=== PATIENT | male | born 1930 | race Caucasian/White ===

== ENCOUNTER 2017-01-18 08:40 | Inpatient (IN) | payer SELFPAY ==
[~2017-01-18] VITALS: Ht 167.6 cm; Wt 54.0 kg
[2017-01-18] MEDS ORDERED: PROPOFOL 1000 MG/ISO-OSM 100 ML IV PRN (08:58)
[2017-01-18] MEDS ORDERED: NOREPINEPHRINE 4 MG/D5%-WATER 250 ML IV PRN ×2 (08:58→16:46)
[2017-01-18] MEDS ORDERED: IPRATROPIUM BROMIDE 0.5 MG/2.5 ML NEB SOLUTION NEB ONE (09:00)
[2017-01-18] MEDS ORDERED: SODIUM CHLORIDE 0.9% 1,000 ML IV ONE ×2 (09:00)
[2017-01-18] MEDS ORDERED: ALBUTEROL SULFATE 5 MG/ML 20 ML NEB SOLN [BULK] NEB ONE (09:00)
[2017-01-18] MEDS ORDERED: ACETAMINOPHEN 325 MG TABLET PO PRN (09:15)
[2017-01-18] MEDS ORDERED: PANTOPRAZOLE SODIUM 40 MG/VIAL IVP SCH (09:15)
[2017-01-18] MEDS ORDERED: BISACODYL 10 MG RECTAL RECTAL SUPPOSITORY PR PRN (09:15)
[2017-01-18 09:28] LABS: APPEARANCE,URINE CLOUDY (CLEAR); GLUCOSE, URINE (UA) NEGATIVE (NEGATIVE); KETONES,URINE 15 mg/dL (NEGATIVE); LEUKOCYTE ESTERASE ,URINE SMALL (NEGATIVE); OCCULT BLOOD,URINE NEGATIVE (NEGATIVE); PROTEIN,URINE POS 1+ (NEGATIVE)
[2017-01-18 09:29] LABS: ADD UA MICROSCOPIC YES
[2017-01-18 09:34] LABS: TRANSITIONAL EPI CELLS,URINE Few /LPF (None Seen)
[2017-01-18 09:35] LABS: SQUAMOUS EPITHELIAL CELL,UR Rare /LPF (None Seen)
[2017-01-18 09:50] LABS: ABG A-A DIFF O2 177.2 mmHg (10-20.0); ABG BASE EXCESS -24.2 mmol/L (-2.0-3.0); ABG PCO2 32 mmHg (35-45)
[2017-01-18 09:51] LABS: ABG HCO3 8.5 mmol/L (22.0-26.0); ABG PH 6.987 (7.35-7.450); ALLEN TEST, BLOOD GAS Positive
[2017-01-18] MEDS ORDERED: 0.9% SODIUM CHLORIDE 5 ML NEB SOLUTION NEB ONE (09:58)
[2017-01-18] MEDS ORDERED: PIPERACILLIN SODIUM/TAZOBACTAM 3.375 GM/VIAL TP ONE (10:00)
[2017-01-18] MEDS ORDERED: VANCOMYCIN HCL 1 GM/D5% WATER 200 ML IV ONE (10:00)
[2017-01-18] MEDS ORDERED: SODIUM BICARBONATE [ADULT] 8.4% 50 MEQ/50 ML SYRINGE IVP ONE ×2 (10:00→14:00)
[2017-01-18 10:10] LABS: EOSINOPHILS # (AUTO) 0.01 K/uL (0.00-0.70); HEMATOCRIT 22.2 % (41-53); HEMOGLOBIN 7.2 g/dL (13.5-17.5); LYMPHOCYTES # (AUTO) 0.5 K/uL (1.0-4.8); LYMPHOCYTES % (AUTO) 4.7 % (22.0-44.0); MEAN CORPUSCULAR HEMOGLOBIN 33.5 pg (26.0-34.0); MEAN CORPUSCULAR HGB CONC 32.4 G/dL (31.0-37.0); MEAN CORPUSCULAR VOLUME 104 fL (80-100); MONOCYTES # (AUTO) 0.2 K/uL (0.1-1.0); MONOCYTES % (AUTO) 1.9 % (2.0-9.0); NEUTROPHILS # (AUTO) 9.3 K/uL (1.8-7.7); PLATELET COUNT (AUTO) 135 K/uL (150-450); RED BLOOD CELL COUNT(AUTO) 2.15 MIL/uL (4.50-5.90); RED CELL DISTRIBUTION WIDTH 14.4 % (11.5-14.5)
[2017-01-18 10:16] LABS: NEUTROPHILS % (AUTO) 93.3 % (40.0-70.0)
[2017-01-18] MEDS ORDERED: PIPERACILLIN/TAZO 3.375 GM/D5W 50 ML IV ONE (10:45)
[2017-01-18] MEDS ORDERED: PHENYLEPHRINE 200 MG/D5%-WATER 250 ML IV ONE (11:20)
[2017-01-18] MEDS ORDERED: PHENYLEPHRINE 200 MG/D5%-WATER 250 ML IV PRN ×2 (11:45→12:10)
[2017-01-18] MEDS ORDERED: PHENYLEPHRINE HCL 800 MG in DEXTROSE 5%-WATER 170 ML IV PRN (11:45)
[2017-01-18 11:51] LABS: CALCIUM, TOTAL 7.5 mg/dL (8.8-10.5); CREATININE 1.87 mg/dL (0.60-1.30)
[2017-01-18 12:08] LABS: LACTIC ACID 12.4 mmol/L (0.4-2.0)
[2017-01-18 12:10] LABS: ALBUMIN 2.4 g/dL (3.4-5.0); BILIRUBIN,TOTAL 2.7 mg/dL (0.1-1.0); TOTAL PROTEIN, SERUM 6.2 g/dL (6.4-8.2)
[2017-01-18 12:15] LABS: CREATINE KINASE MB 9.6 ng/mL (0-5)
[2017-01-18] MEDS ORDERED: SUCCINYLCHOLINE CHLORIDE 20 MG/ML 10 ML VIAL IVP ONE ×2 (12:15→21:39)
[2017-01-18] MEDS ORDERED: SODIUM CHLORIDE 0.9% 500 ML IV ONE (12:15)
[2017-01-18] MEDS ORDERED: ETOMIDATE 2 MG/ML 10 ML VIAL IVP ONE ×2 (12:15→21:39)
[2017-01-18] MEDS ORDERED: SODIUM BICARBONATE 150 MEQ in DEXTROSE 5%-WATER 1,000 ML IV ONE (12:45)
[2017-01-18] MEDS ORDERED: NOREPINEPHRINE 4 MG/D5%-WATER 250 ML IV ONE ×2 (13:07→16:45)
[2017-01-18 13:30] LABS: INFLUENZA TYPE B NEGATIVE FOR TYPE B (NEGATIVE)
[2017-01-18 13:45] LABS: REFLEX LACTIC ACID? YES YES
[2017-01-18 13:53] LABS: ABG A-A DIFF O2 194.7 mmHg (10-20.0); ABG BASE EXCESS -18.3 mmol/L (-2.0-3.0); ABG HCO3 11.9 mmol/L (22.0-26.0); ABG PCO2 35 mmHg (35-45)
[2017-01-18 13:54] LABS: ABG PH 7.124 (7.35-7.450); ALLEN TEST, BLOOD GAS Positive
[2017-01-18 15:40] LABS: ANION GAP 18 mmol/L (8-16); CALCIUM, TOTAL 7.4 mg/dL (8.8-10.5); CARBON DIOXIDE 21 mmol/L (22-29); CHLORIDE 102 mmol/L (98-107); CREATININE 2.05 mg/dL (0.60-1.30); GLOMERULAR FILTR. RATE CALC 31 mL/min (>60); POTASSIUM 5.2 mmol/L (3.5-5.1); SODIUM SERUM 141 mmol/L (136-145); UREA NITROGEN, BLOOD 45 mg/dL (7-18)
[2017-01-18 15:46] LABS: SALICYLATE 14.5 mg/dL (2.8-20.0)
[2017-01-18 15:50] LABS: OSMOLALITY 317 mOS/kg (270-310)
[2017-01-18 15:52] LABS: ACETAMINOPHEN < 2 mcg/mL (10-30)
[2017-01-18 16:00] VITALS: BP 124/79
[2017-01-18] MEDS ORDERED: VASOPRESSIN 40 UNITS in DEXTROSE 5%-WATER 98 ML IV PRN (16:55)
[2017-01-18] MEDS ORDERED: LACTULOSE 20 GM/30 ML SOLUTION UDCUP PO SCH (21:00)
[2017-01-18] MEDS ORDERED: DOCUSATE SODIUM 100 MG CAPSULE PO SCH (21:00)
[2017-01-18] MEDS ORDERED: HEPARIN SODIUM,PORCINE 5,000 UNITS/ML VIAL SQ SCH (21:00)
[2017-01-19] MEDS ORDERED: SODIUM BICARBONATE 150 MEQ in DEXTROSE 5%-WATER 1,000 ML IV SCH ×2
== END 2017-01-18 21:40 | disposition expired | DRG 871 ==
LOC: EMS 08:43 → ICU 13:31
PROVIDERS: ADMIT Internal Medicine; ATTEND Internal Medicine
PROC: 06HM33Z Insertion of Infusion Device into Right Femoral Vein, Percutaneous Approach (ICD-10-PCS; principal; 2017-01-18)
PROC: 5A1935Z Respiratory Ventilation, Less than 24 Consecutive Hours (ICD-10-PCS; 2017-01-18)
PROC: B54BZZA Ultrasonography of Right Lower Extremity Veins, Guidance (ICD-10-PCS; 2017-01-18)
PROC: 0BH17EZ Insertion of Endotracheal Airway into Trachea, Via Natural or Artificial Opening (ICD-10-PCS; 2017-01-18)
DX: A41.9 Sepsis, unspecified organism (principal); J96.01 Acute respiratory failure with hypoxia; K72.00 Acute and subacute hepatic failure without coma; Z66 Do not resuscitate; N17.0 Acute kidney failure with tubular necrosis; R57.9 Shock, unspecified; E87.2 Acidosis; R64 Cachexia; N17.9 Acute kidney failure, unspecified; J98.11 Atelectasis; Z68.1 Body mass index [BMI] 19.9 or less, adult; I70.0 Atherosclerosis of aorta; F17.210 Nicotine dependence, cigarettes, uncomplicated; R19.7 Diarrhea, unspecified; J44.9 Chronic obstructive pulmonary disease, unspecified; D64.9 Anemia, unspecified
CPT/HCPCS: 51702; 70450; 71250; 72192; 74150; 76700; 80307; 82570; 82805; 83605; 83930; 84156; 84300; 84540; 85379; 87040; 87081; 87086; 87804; 93005; 93308; C9113; G0480; G0481; J0330; J2370; J2543; J2704; J3370; J3490; J7060